=== PATIENT | male | born 1990 | race Caucasian/White ===

== ENCOUNTER → 2021-02-08 | Outpatient (REF) | payer OTHER | LOC: M SMT 19:07 | PROVIDERS: ATTEND Urology | DX: Z30.2 Encounter for sterilization (principal) ==

== ENCOUNTER → 2021-05-10 | Outpatient (REF) | payer OTHER ==
[2021-05-10 09:01] LABS: SEMEN APPEARANCE OPAQUE (OPAQUE); SEMEN VISCOSITY LIQUID (LIQUID); SEMEN VOLUME 2.4 ml (2.0-5.0); WBC CONCENTRATION >1 M/ml (<=1 M/ml)
== END ==
LOC: M SMT 08:42
PROVIDERS: ATTEND Urology
DX: Z30.2 Encounter for sterilization (principal)

== ENCOUNTER 2025-01-09 10:44 | Emergency (ER) | payer BC, OTHER, SELFPAY ==
[~2025-01-09] VITALS: Ht 182.9 cm; Wt 82.5 kg
[2025-01-09] MEDS ORDERED: FLUC-1 (11:33)
[2025-01-09] MEDS ORDERED: KETO120S5 (11:33)
[2025-01-09] MEDS ORDERED: PRED10PA PO (11:36)
[2025-01-09] MEDS ORDERED: CYCL5TAB4 PO (11:36)
[2025-01-09] MEDS: ACETAMINOPHEN 500 MG TAB PO ONE (15:09)
[2025-01-09 15:18] VITALS: BP 150/88; TEMP 99.1; O2SAT 98
[2025-01-09] MEDS ORDERED: CYCL-707 PO (16:20)
== END 2025-01-09 16:29 | disposition home or self-care (01) ==
LOC: M ED 10:44
DX: M54.17 Radiculopathy, lumbosacral region (principal); Z79.899 Other long term (current) drug therapy; Z88.2 Allergy status to sulfonamides
CPT/HCPCS: 96372; 99283; J2919

== ENCOUNTER 2025-01-22 11:04 | Emergency (ER) | payer BC, SELFPAY ==
[~2025-01-22] VITALS: Ht 185.4 cm; Wt 86.7 kg
[~2025-01-22 11:04] MED LIST: CYCL-707 PO; CYCL5TAB4 PO; FLUC-1; KETO120S5; PRED10PA PO
[2025-01-22] MEDS ORDERED: IBUP600T42 (11:22)
[2025-01-22] MEDS ORDERED: GABA-284 (11:22)
[2025-01-22] MEDS ORDERED: METH-1165 PO (17:13)
[2025-01-22] MEDS ORDERED: PREG-35 PO (17:13)
[2025-01-22 17:34] VITALS: BP 159/90; TEMP 97.6; O2SAT 100
== END 2025-01-22 17:37 | disposition home or self-care (01) ==
LOC: M ED 11:04
DX: M51.27 Other intervertebral disc displacement, lumbosacral region (principal); Z88.2 Allergy status to sulfonamides